=== PATIENT | male | born 1955 | race Caucasian/White ===

== ENCOUNTER 2019-08-12 08:59 | Day surgery (SDC) | payer BC ==
[2019-08-12] VITALS (10 sets, daily range): BP systolic 104–130; BP diastolic 64–81
[~2019-08-12] VITALS: Ht 167.6 cm; Wt 81.5 kg
[~2019-08-12 08:59] MED LIST: ASPI-920 PO; AZIL40TA PO; CARV-50 PO; CLOP75TA35 PO; DARU600T2 PO; ETRA200T PO; ISOS60TA4 PO; RALT400T PO; RITO100C2 PO; ROSU20TA2 PO; SITA50TA PO
[2019-08-12] MEDS ORDERED: normal saline 1,000 ML IV SCH (09:35)
[2019-08-12] MEDS ORDERED: diphenhydrAMINE 25mg capsule PO PRN (09:35)
[2019-08-12] MEDS ORDERED: NITR0.4T51 SL (09:49)
[2019-08-12] MEDS ORDERED: ALLO100T15 PO (09:50)
[2019-08-12] MEDS ORDERED: DORA100T PO (09:51)
[2019-08-12] MEDS ORDERED: DARU1TAB PO (09:52)
[2019-08-12] MEDS ORDERED: DOLU50TA PO (09:53)
[2019-08-12] MEDS ORDERED: OMEP-297 PO (09:57)
[2019-08-12] MEDS ORDERED: AMLO2.5T2 PO (10:05)
[2019-08-12 10:25] LABS: ALBUMIN 4.3 G/DL (3.4-5.0); ANION GAP 10 (8-16); BLOOD UREA NITROGEN 26 MG/DL (7-18); BUN/CREATININE RATIO 14.9 (5.4-32.0); CALCIUM 9.8 MG/DL (8.5-10.1); CHLORIDE 105 MMOL/L (99-107); CREATININE 1.74 MG/DL (0.60-1.10); GLUCOSE 138 MG/DL (70-104); MAGNESIUM 1.9 MG/DL (1.5-2.4); SODIUM 139 MMOL/L (135-145); TOTAL CARBON DIOXIDE 24.1 MMOL/L (24-32); eGFR 40 ML/MIN
[2019-08-12 10:27] LABS: BASOPHILS % (AUTO) 0.4 % (0-1); EOSINOPHILS # (AUTO) 0.1 X10'3 (0-0.9); HEMATOCRIT 41.5 % (42.0-52.0); LYMPHOCYTES # (AUTO) 1.3 X10'3 (1.1-4.8); LYMPHOCYTES % (AUTO) 17.4 % (21-51); MEAN CORPUSCULAR HEMOGLOBIN 31.5 PG (27.0-31.0); MEAN CORPUSCULAR HGB CONC 33.7 g/dL (33.0-36.5); MEAN CORPUSCULAR VOLUME 93.5 FL (78-98); MEAN PLATELET VOLUME 9.4 FL (7.4-10.4); MONOCYTES # (AUTO) 0.6 X10'3 (0-0.9); MONOCYTES % (AUTO) 8.3 % (2-12); NEUTROPHILS # (AUTO) 5.3 X10'3 (1.8-7.7); NEUTROPHILS % (AUTO) 71.9 % (42-75); PLATELET COUNT 194 X10'3 (140-440); POTASSIUM 4.8 MMOL/L (3.5-5.1); RED BLOOD COUNT 4.44 X10'6 (4.70-6.10); RED CELL DISTRIBUTION WIDTH 14.7 % (11.5-14.5); WHITE BLOOD COUNT 7.3 X10'3 (4.5-11.0)
[2019-08-12] MEDS ORDERED: heparin 1,000 UNITS/NS 500ml 500 ML ONE ×2 (12:23→12:24)
[2019-08-12] MEDS ORDERED: LIDOcaine 1% (10mg/ml)w/preservative injection 20ml MDV ONE (12:23)
[2019-08-12] MEDS ORDERED: iohexol 350MG/ML 100ml bottle IV ONE ×2 (12:23→13:16)
[2019-08-12] MEDS ORDERED: fentaNYL/PF 50MCG/1 ML 2ML syringe ONE (12:23)
[2019-08-12] MEDS ORDERED: midazolam 2 mg/2 ml injection ONE ×3 (12:23→12:59)
[2019-08-12] MEDS ORDERED: iohexol 350 MG/ML 50ML vial IV ONE (12:23)
[2019-08-12] MEDS ORDERED: heparin 1,000unit/ml 10ml vial 10 ML ONE (13:15)
[2019-08-12] MEDS ORDERED: clopidogrel 300mg tablet PO STA (13:53)
[2019-08-12] MEDS ORDERED: ondansetron/PF 4mg/2ml inj IV PRN (14:25)
[2019-08-12] MEDS ORDERED: proCHLORperazine 10 MG/2 ml inj IV PRN (14:25)
[2019-08-12] MEDS ORDERED: normal saline 1000ml 1,000 ML IV SCH (14:25)
[2019-08-12] MEDS ORDERED: OXAZEpam 15mg capsule PO PRN (14:25)
== END 2019-08-12 17:01 | disposition home or self-care (01) ==
LOC: SSTAY O 08:59
PROVIDERS: ATTEND Internal Medicine Cardiovascular Disease
DX: I25.719 Atherosclerosis of autologous vein coronary artery bypass graft(s) with unspecified angina pectoris (principal); I25.82 Chronic total occlusion of coronary artery; E78.5 Hyperlipidemia, unspecified; I12.9 Hypertensive chronic kidney disease with stage 1 through stage 4 chronic kidney disease, or unspecified chronic kidney disease; N18.9 Chronic kidney disease, unspecified; Z95.1 Presence of aortocoronary bypass graft; Z95.5 Presence of coronary angioplasty implant and graft; R07.9 Chest pain, unspecified
CPT/HCPCS: 36415; 80048; 82948; 83735; 85025; 85610; 93005; 93459; C1725; C1769; C1874; C1894; C9604; J1644; J2001; J2250; J3010; J7030; Q0163; Q9967; 99152; 99153; A4620; A6258; C1760; C9600; C9601

== ENCOUNTER 2019-12-30 08:56 | Day surgery (SDC) | payer MEDICARE, BC ==
[~2019-12-30] VITALS: Ht 167.6 cm; Wt 79.0 kg
[2019-12-30] VITALS (9 sets, daily range): BP systolic 82–110; BP diastolic 44–67
[~2019-12-30 08:56] MED LIST changes: +ALLO100T15 PO; +AMLO2.5T2 PO; +DARU1TAB PO; -DARU600T2 PO; +DOLU50TA PO; +DORA100T PO; -ETRA200T PO; +NITR0.4T51 SL; +OMEP20CA15 PO; -RALT400T PO; -RITO100C2 PO
[2019-12-30] MEDS ORDERED: diphenhydrAMINE 25mg capsule PO PRN (09:15)
[2019-12-30] MEDS ORDERED: normal saline 1,000 ML IV SCH (09:15)
[2019-12-30] MEDS ORDERED: AZIL40TA PO (09:31)
[2019-12-30] MEDS ORDERED: LINA5TAB4 PO (09:38)
[2019-12-30 09:57] LABS: BASOPHILS % (AUTO) 0.4 % (0-1); EOSINOPHILS # (AUTO) 0.2 X10'3 (0-0.9); EOSINOPHILS % (AUTO) 2.8 % (0-6); HEMATOCRIT 36.8 % (42.0-52.0); HEMOGLOBIN 12.3 g/dl (14.0-17.9); LYMPHOCYTES # (AUTO) 1.9 X10'3 (1.1-4.8); LYMPHOCYTES % (AUTO) 23.7 % (21-51); MEAN CORPUSCULAR HEMOGLOBIN 30.8 PG (27.0-31.0); MEAN CORPUSCULAR HGB CONC 33.4 g/dL (33.0-36.5); MEAN CORPUSCULAR VOLUME 92.1 FL (78-98); MEAN PLATELET VOLUME 9.1 FL (7.4-10.4); MONOCYTES # (AUTO) 0.9 X10'3 (0-0.9); MONOCYTES % (AUTO) 11.1 % (2-12); NEUTROPHILS # (AUTO) 5.1 X10'3 (1.8-7.7); PLATELET COUNT 179 X10'3 (140-440); RED CELL DISTRIBUTION WIDTH 14.7 % (11.5-14.5); WHITE BLOOD COUNT 8.2 X10'3 (4.5-11.0)
[2019-12-30 10:09] LABS: ALBUMIN 3.8 G/DL (3.4-5.0); ANION GAP 9 (8-16); BLOOD UREA NITROGEN 42 MG/DL (7-18); BUN/CREATININE RATIO 17.1 (5.4-32.0); CALCIUM 9.1 MG/DL (8.5-10.1); CHLORIDE 105 MMOL/L (99-107); CREATININE 2.46 MG/DL (0.60-1.10); GLUCOSE 198 MG/DL (70-104); MAGNESIUM 2.1 MG/DL (1.5-2.4); POTASSIUM 5.3 MMOL/L (3.5-5.1); SODIUM 137 MMOL/L (135-145); TOTAL CARBON DIOXIDE 22.8 MMOL/L (24-32); eGFR 27 ML/MIN
[2019-12-30] MEDS ORDERED: midazolam 2 mg/2 ml injection ONE ×2 (10:49→11:13)
[2019-12-30] MEDS ORDERED: LIDOcaine 1% (10mg/ml)w/preservative injection 20ml MDV ONE (10:49)
[2019-12-30] MEDS ORDERED: iohexol 350MG/ML 100ml bottle IV ONE (10:49)
[2019-12-30] MEDS ORDERED: fentaNYL/PF 50MCG/1 ML 2ML syringe ONE (10:49)
[2019-12-30] MEDS ORDERED: heparin 1,000unit/ml 10ml vial 10 ML ONE (10:49)
[2019-12-30] MEDS ORDERED: HYDROcodone/acetaminophen 5mg/325mg tablet PO PRN (12:10)
[2019-12-30] MEDS ORDERED: HYDROcodone/acetaminophen 10/325mg tab PO PRN (12:10)
[2019-12-30] MEDS ORDERED: proCHLORperazine 10 MG/2 ml inj IV PRN (12:10)
[2019-12-30] MEDS ORDERED: ondansetron/PF 4mg/2ml inj IV PRN (12:10)
== END 2019-12-30 15:00 | disposition home or self-care (01) ==
LOC: SSTAY O 08:56
PROVIDERS: ATTEND Internal Medicine Cardiovascular Disease
DX: I25.119 Atherosclerotic heart disease of native coronary artery with unspecified angina pectoris (principal); I25.82 Chronic total occlusion of coronary artery; I10 Essential (primary) hypertension; E78.5 Hyperlipidemia, unspecified; E11.9 Type 2 diabetes mellitus without complications; Z79.899 Other long term (current) drug therapy; Z79.82 Long term (current) use of aspirin; Z79.01 Long term (current) use of anticoagulants
CPT/HCPCS: 36415; 80048; 83735; 85025; 85610; 93005; 93459; 99152; 99153; C1769; C1894; J1644; J2001; J2250; J3010; Q9967; A4620; A6258; C1760

== ENCOUNTER 2020-09-28 09:04 | Day surgery (SDC) | payer MEDICARE, BC ==
[~2020-09-28] VITALS: Ht 172.7 cm; Wt 81.6 kg
[2020-09-28] VITALS (10 sets, daily range): BP systolic 88–155; BP diastolic 38–113
[~2020-09-28 09:04] MED LIST changes: +CLOP75TA34 PO; -CLOP75TA35 PO; +LINA5TAB4 PO; -SITA50TA PO
[2020-09-28] MEDS ORDERED: diphenhydrAMINE 25mg capsule PO PRN (09:25)
[2020-09-28] MEDS ORDERED: normal saline 1,000 ML IV SCH ×2 (09:25→16:55)
[2020-09-28] MEDS ORDERED: ISOS120T13 PO (09:51)
[2020-09-28] MEDS ORDERED: DEXL60CA3 PO (09:51)
[2020-09-28] MEDS ORDERED: NIAC250C26 PO (09:51)
[2020-09-28] MEDS ORDERED: ICOS1CAP PO (09:51)
[2020-09-28 10:52] LABS: BASOPHILS % (AUTO) 0.5 % (0-1); EOSINOPHILS # (AUTO) 0.3 X10'3 (0-0.9); EOSINOPHILS % (AUTO) 4.9 % (0-6); HEMATOCRIT 36.7 % (42.0-52.0); HEMOGLOBIN 12.1 g/dl (14.0-17.9); LYMPHOCYTES # (AUTO) 1.6 X10'3 (1.1-4.8); LYMPHOCYTES % (AUTO) 25.1 % (21-51); MEAN CORPUSCULAR HEMOGLOBIN 31.2 PG (27.0-31.0); MEAN CORPUSCULAR VOLUME 94.6 FL (78-98); MEAN PLATELET VOLUME 9.1 FL (7.4-10.4); MONOCYTES # (AUTO) 0.7 X10'3 (0-0.9); MONOCYTES % (AUTO) 10.9 % (2-12); NEUTROPHILS # (AUTO) 3.8 X10'3 (1.8-7.7); NEUTROPHILS % (AUTO) 58.6 % (42-75); PLATELET COUNT 132 X10'3 (140-440); RED BLOOD COUNT 3.88 X10'6 (4.70-6.10); RED CELL DISTRIBUTION WIDTH 15.5 % (11.5-14.5); WHITE BLOOD COUNT 6.5 X10'3 (4.5-11.0)
[2020-09-28 11:06] LABS: ALBUMIN 3.7 G/DL (3.4-5.0); ANION GAP 10 (8-16); BLOOD UREA NITROGEN 61 MG/DL (7-18); BUN/CREATININE RATIO 21.5 (5.4-32.0); CALCIUM 8.8 MG/DL (8.5-10.1); CHLORIDE 105 MMOL/L (99-107); CREATININE 2.84 MG/DL (0.60-1.10); GLUCOSE 169 MG/DL (70-104); MAGNESIUM 2.2 MG/DL (1.5-2.4); SODIUM 137 MMOL/L (135-145); TOTAL CARBON DIOXIDE 21.9 MMOL/L (24-32); eGFR 22 ML/MIN
[2020-09-28 11:09] LABS: POTASSIUM 6.2 MMOL/L (3.5-5.1)
--- NOTE | 2020-09-28 11:13 | NUR ---
Called Dr. Shipman re critical K level & elevated BUN & Cr. Order received to redraw stat BMP.
[2020-09-28 11:45] LABS: ANION GAP 9 (8-16); BLOOD UREA NITROGEN 60 MG/DL (7-18); BUN/CREATININE RATIO 22.1 (5.4-32.0); CHLORIDE 106 MMOL/L (99-107); CREATININE 2.72 MG/DL (0.60-1.10); GLUCOSE 150 MG/DL (70-104); SODIUM 137 MMOL/L (135-145)
[2020-09-28 11:46] LABS: ALBUMIN 3.7 G/DL (3.4-5.0); CALCIUM 8.7 MG/DL (8.5-10.1); eGFR 24 ML/MIN
[2020-09-28 11:49] LABS: POTASSIUM 6.6 MMOL/L (3.5-5.1)
--- NOTE | 2020-09-28 11:51 | NUR ---
Called Dr. Shipman re new critical K result of 6.6. Orders received for bicarb & 30mg of Kaexalate PO now.
[2020-09-28] MEDS ORDERED: sodium bicarbonate (8.4%) inj. 50 MEQ in dextrose 5%-water 1,000 ML IV SCH (11:55)
[2020-09-28] MEDS ORDERED: sodium polystyrene sulfonate 15gm/60ml oral suspension PO ONE ×2 (11:55→14:10)
[2020-09-28] MEDS ORDERED: LIDOcaine 1% (10mg/ml)w/preservative injection 20ml MDV ONE (12:05)
[2020-09-28] MEDS ORDERED: midazolam 2 mg/2 ml injection ONE ×3 (12:05→15:45)
[2020-09-28] MEDS ORDERED: fentaNYL/PF 50MCG/1 ML 2ML syringe ONE ×2 (12:05→15:15)
[2020-09-28] MEDS ORDERED: iohexol 350 MG/ML 50ML vial IV ONE (12:05)
[2020-09-28] MEDS ORDERED: heparin 1,000unit/ml 10ml vial 10 ML ONE (12:05)
[2020-09-28] MEDS ORDERED: iohexol 350MG/ML 100ml bottle IV ONE (12:05)
[2020-09-28 13:57] LABS: ALBUMIN 3.7 G/DL (3.4-5.0); ANION GAP 12 (8-16); BLOOD UREA NITROGEN 58 MG/DL (7-18); CALCIUM 8.9 MG/DL (8.5-10.1); CHLORIDE 106 MMOL/L (99-107); CREATININE 2.52 MG/DL (0.60-1.10); GLUCOSE 153 MG/DL (70-104); POTASSIUM 5.4 MMOL/L (3.5-5.1); SODIUM 140 MMOL/L (135-145); TOTAL CARBON DIOXIDE 21.7 MMOL/L (24-32); eGFR 26 ML/MIN
--- NOTE | 2020-09-28 14:05 | NUR ---
Called Dr. Shipman re BMP results. New order received to run bicarb at bolus rate and another 30mg of Kayexalte PO now.
--- NOTE | 2020-09-28 16:42 | NUR ---
Called Dr. Shipman re pt's complaints of chest pain. Order received to nereida nitro box on post cath order sheet. Order received for one time dose of Ranexa 500mg. Order received to run bicarb at bolus rate for 2 more hours, then stop.
[2020-09-28] MEDS ORDERED: nitroGLYCERIN 0.4mg SUBLingual tab SL ONE (16:45)
[2020-09-28] MEDS ORDERED: nitroGLYCERIN 0.4mg SUBLingual tab SL PRN (16:45)
[2020-09-28] MEDS ORDERED: HYDROcodone/acetaminophen 5mg/325mg tablet PO PRN (16:55)
[2020-09-28] MEDS ORDERED: HYDROcodone/acetaminophen 10/325mg tab PO PRN (16:55)
[2020-09-28] MEDS ORDERED: bumetanide 0.25mg/ml 4ml vial IV ONE (17:30)
[2020-09-28] MEDS ORDERED: ranolazine 500mg SR tablet (Q12H) PO SCH (20:00)
== END 2020-09-28 19:30 | disposition home or self-care (01) ==
LOC: SSTAY O 09:04
PROVIDERS: ATTEND Internal Medicine Cardiovascular Disease
DX: I25.119 Atherosclerotic heart disease of native coronary artery with unspecified angina pectoris (principal); E78.00 Pure hypercholesterolemia, unspecified; I25.82 Chronic total occlusion of coronary artery; I10 Essential (primary) hypertension; E11.9 Type 2 diabetes mellitus without complications; Z95.1 Presence of aortocoronary bypass graft; Z98.890 Other specified postprocedural states
CPT/HCPCS: 36415; 80048; 82948; 83735; 85025; 85610; 93005; 93455; 99152; 99153; C1760; C1769; C1894; J1644; J2001; J2250; J3010; J7030; Q0163; Q9967; A4620; A6258; J3490